=== PATIENT | female | born 1980 | race African-American/Black ===

== ENCOUNTER 2019-01-02 09:33 | Emergency (ER) | payer OTHER ==
[~2019-01-02] VITALS: Ht 162.6 cm; Wt 68.0 kg
[2019-01-02 11:36] VITALS: BP 122/74
== END 2019-01-02 11:37 | disposition home or self-care (01) ==
LOC: ER 09:33
DX: J06.9 Acute upper respiratory infection, unspecified (principal); J02.9 Acute pharyngitis, unspecified; Z91.010 Allergy to peanuts
CPT/HCPCS: 71045; 81025; 99283